=== PATIENT | male | born 1955 | race Caucasian/White ===

== ENCOUNTER 2020-10-27 01:58 | Emergency (ER) | payer BC ==
[~2020-10-27] VITALS: Ht 172.7 cm; Wt 98.0 kg
[2020-10-27 02:06] VITALS: BP 127/92
[2020-10-27] MEDS ORDERED: TETanus/Pertussis (Acell)/Diphther VAC/PF (Tdap-Adult) 0.5ml syringe IMVAC ONE (02:15)
[2020-10-27] MEDS ORDERED: LIDOcaine 1% W/epiNEPHrine 1:200,000 10ml vial IJ ONE (02:15)
== END 2020-10-27 03:44 | disposition home or self-care (01) ==
LOC: ER 01:59
DX: S92.512A Displaced fracture of proximal phalanx of left lesser toe(s), initial encounter for closed fracture (principal); Z86.73 Personal history of transient ischemic attack (TIA), and cerebral infarction without residual deficits; X58.XXXA Exposure to other specified factors, initial encounter; Y93.89 Activity, other specified; Y92.89 Other specified places as the place of occurrence of the external cause; Y99.8 Other external cause status
CPT/HCPCS: 28515; 73660; 90471; 90715; 99284

== ENCOUNTER 2024-02-29 19:43 | Emergency (ER) | payer BC ==
[~2024-02-29] VITALS: Ht 172.7 cm; Wt 87.5 kg
[2024-02-29] MEDS: HYDROcodone/acetaminophen 5mg/325mg tablet PO ONE (21:39)
[2024-02-29] MEDS: diphenhydrAMINE 50 mg/ml inj IV ONE ×2 (21:39→22:27)
[2024-02-29] MEDS: metoclopramide 5 mg/ml inj IV ONE ×2 (21:39→22:26)
[2024-02-29 22:03] LABS: BASOPHILS % (AUTO) 0.3 % (0-1); EOSINOPHILS % (AUTO) 0.2 % (0-6); HEMATOCRIT 43.3 % (42.0-52.0); HEMOGLOBIN 14.6 g/dl (14.0-17.9); LYMPHOCYTES # (AUTO) 0.6 X10'3 (1.1-4.8); LYMPHOCYTES % (AUTO) 7.5 % (21-51); MEAN CORPUSCULAR HEMOGLOBIN 32.1 PG (27.0-31.0); MEAN CORPUSCULAR HGB CONC 33.8 g/dL (33.0-36.5); MEAN CORPUSCULAR VOLUME 94.9 FL (78-98); MEAN PLATELET VOLUME 7.1 FL (7.4-10.4); MONOCYTES # (AUTO) 0.4 X10'3 (0-0.9); MONOCYTES % (AUTO) 4.7 % (2-12); NEUTROPHILS # (AUTO) 7.5 X10'3 (1.8-7.7); NEUTROPHILS % (AUTO) 87.3 % (42-75); PLATELET COUNT 221 X10'3 (140-440); RED BLOOD COUNT 4.57 X10'6 (4.70-6.10); RED CELL DISTRIBUTION WIDTH 12.3 % (11.5-14.5); WHITE BLOOD COUNT 8.6 X10'3 (4.5-11.0)
[2024-02-29 22:14] LABS: ALBUMIN 4.2 G/DL (3.4-5.0); ANION GAP 8 (8-16); BLOOD UREA NITROGEN 16 MG/DL (7-18); BUN/CREATININE RATIO 13.8 (10.0-20.0); CALCIUM 8.9 MG/DL (8.5-10.1); CHLORIDE 101 MMOL/L (99-107); CREATININE 1.16 MG/DL (0.60-1.10); GLUCOSE 160 MG/DL (70-104); POTASSIUM 4.4 MMOL/L (3.5-5.1); SODIUM 136 MMOL/L (135-145); TOTAL CARBON DIOXIDE 27.4 MMOL/L (24-32); eCRCL 60 ML/MIN; eGFR 63 ML/MIN
[2024-02-29 22:16] LABS: APTT 28 SECONDS (22-32); INR 1.1 INR; PROTHROMBIN TIME 11.7 SECONDS (9.0-12.0)
[2024-02-29] MEDS: dexamethasone sod phosphate 10mg/ml inj IV STA (22:26)
[2024-02-29] MEDS: magnesium 2GM in 50ml NS 50 ML IV ONE (22:26)
[2024-03-01 01:20] VITALS: BP 132/74; PULSE 82; RESP 28; TEMP 98.2; O2SAT 98
== END 2024-03-01 01:22 | disposition home or self-care (01) ==
LOC: ER 19:43
DX: R51.9 Headache, unspecified (principal); Z86.718 Personal history of other venous thrombosis and embolism; R11.0 Nausea
CPT/HCPCS: 36415; 70450; 80048; 84484; 85025; 85610; 85730; 86885; 86900; 86901; 93005; 96365; 96375; 99285; J1100; J1200; J2765; J3475